=== PATIENT | male | born 1950 | race Caucasian/White ===

== ENCOUNTER 2017-09-24 17:04 | Emergency (ER) | payer OTHER, MEDICARE, BC ==
[~2017-09-24] VITALS: Ht 185.4 cm; Wt 100.0 kg
[2017-09-24] MEDS ORDERED: PERC10TA27 PO (17:44)
[2017-09-24] MEDS ORDERED: CYMB30CA PO (17:44)
[2017-09-24] MEDS ORDERED: MORP-44 PO (17:44)
[2017-09-24 17:56] VITALS: BP 132/78; PULSE 90; RESP 16; TEMP 98.4; O2SAT 95
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
[2017-09-24] MEDS ORDERED: MORPHINE SULFATE 2 MG/ML INJ IV PUSH ONE ×3 (18:15→20:30)
[2017-09-24] MEDS ORDERED: DIPHTH/TETANUS/ACEL PERTUSSIS (BOOSTER) 0.5 ML VIAL/PFS IM ONE (18:15)
[2017-09-24] MEDS ORDERED: SODIUM CHLORIDE 0.9% FLUSH 10 ML FLUSH IVF PRN (18:15)
[2017-09-24 19:03] LABS: INTERNATIONAL NORMALIZED RATIO 1.1 RATIO
[2017-09-24 19:14] LABS: AUTOMATED NEUTROPHIL # 6.3 TH/MM3 (1.8-7.7); BASOPHIL % 0.3 % (0.0-2.0); EOSINOPHIL # 0.1 TH/MM3 (0-0.4); EOSINOPHIL % 1.2 % (0.0-4.0); HEMATOCRIT 45.1 % (39.0-51.0); HEMOGLOBIN 15.6 GM/DL (13.0-17.0); LYMPH % 13.2 % (9.0-44.0); MEAN CELL VOLUME 90.2 FL (80.0-100.0); MEAN CORPUSCULAR HEMOGLOBIN 31.1 PG (27.0-34.0); MEAN CORPUSCULAR HGB CONC 34.5 % (32.0-36.0); MEAN PLATELET VOLUME 7.5 FL (7.0-11.0); MONO % 5.6 % (0.0-8.0); MONOCYTE # 0.4 TH/MM3 (0-0.9); NEUT % 79.7 % (16.0-70.0); PLATELET COUNT 198 TH/MM3 (150-450); RED CELL DISTRIBUTION WIDTH 13.2 % (11.6-17.2); WHITE BLOOD COUNT 7.9 TH/MM3 (4.0-11.0)
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
[2017-09-24 19:16] LABS: ALBUMIN 4.2 GM/DL (3.4-5.0); AST (GOT) 51 U/L (15-37); BICARBONATE 31.1 MEQ/L (21.0-32.0); BLOOD UREA NITROGEN 20 MG/DL (7-18); CALCIUM 9.4 MG/DL (8.5-10.1); CHLORIDE 104 MEQ/L (98-107); CREATININE 1.22 MG/DL (0.60-1.30); GLOMERULAR FILTRATION RATE 60 ML/MIN (>89); GLUCOSE,RANDOM 109 MG/DL (74-106); SODIUM (NA) 139 MEQ/L (136-145)
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
[2017-09-24 19:17] LABS: ALT (GPT) 49 U/L (12-78)
[2017-09-24 19:19] LABS: ALKALINE PHOSPHATASE 82 U/L (45-117); TOTAL BILIRUBIN ADULT 0.7 MG/DL (0.2-1.0); TOTAL PROTEIN 7.7 GM/DL (6.4-8.2)
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
[2017-09-24] MEDS ORDERED: IOHEXOL 350 MG/ML 10 ML VIAL (for RAD DIAG) IVCONTRAST ONE (19:44)
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
[2017-09-24] MEDS ORDERED: SODIUM CHLORID 0.9% 500 ML INJ 500 ML IV ONE (20:30)
[2017-09-24] MEDS ORDERED: KETOROLAC TROMETHAMINE 30 MG/ML (IVP) VIAL IV PUSH ONE (20:30)
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
[2017-09-24 21:10] VITALS: RESP 16; O2SAT 98
[2017-09-24] MEDS ORDERED: PERC5TAB12 PO (21:35)
[2017-09-24] MEDS ORDERED: CYCL10TA PO (21:35)
[2017-09-24] MEDS ORDERED: CYCLOBENZAPRINE HCL 10 MG TAB PO ONE (21:45)
== END 2017-09-24 22:02 | disposition home or self-care (01) ==
LOC: NEPD 17:04
DX: M50.323 Other cervical disc degeneration at C6-C7 level (principal); M25.512 Pain in left shoulder; M25.522 Pain in left elbow; M25.562 Pain in left knee; M25.552 Pain in left hip; R16.0 Hepatomegaly, not elsewhere classified; K76.0 Fatty (change of) liver, not elsewhere classified; V28.4XXA Motorcycle driver injured in noncollision transport accident in traffic accident, initial encounter; Z23 Encounter for immunization
CPT/HCPCS: 70450; 71045; 71260; 72125; 72170; 73030; 73080; 73130; 73564; 73610; 74177; 80053; 85025; 85610; 85730; 86850; 86900; 86901; 90471; 90715; 96361; 96374; 96375; 96376; 99285; J1885; J2270; J7040; Q9967